=== PATIENT | male | born 1960 | race Two or more races ===

== ENCOUNTER 2018-10-18 17:46 | Emergency (ER) | payer OTHER ==
[~2018-10-18] VITALS: Ht 165.1 cm; Wt 77.3 kg
[2018-10-18] MEDS ORDERED: ASPI81 PO (18:02)
[2018-10-18] MEDS ORDERED: SIMV-259 PO (18:02)
[2018-10-18] MEDS ORDERED: HYDR25TA PO (18:02)
[2018-10-18] MEDS ORDERED: LEVO88TA4 PO (18:02)
[2018-10-18 19:01] VITALS: BP 144/79
== END 2018-10-18 20:25 | disposition home or self-care (01) ==
LOC: EMS 17:51
DX: B02.9 Zoster without complications (principal); E78.00 Pure hypercholesterolemia, unspecified; E03.9 Hypothyroidism, unspecified; I10 Essential (primary) hypertension; Z79.899 Other long term (current) drug therapy